=== PATIENT | female | born 1995 | race Two or more races ===

== ENCOUNTER 2022-01-12 08:23 | Emergency (ER) | payer MEDICAID, OTHER ==
[~2022-01-12] VITALS: Ht 162.6 cm; Wt 88.8 kg
[2022-01-12] MEDS ORDERED: SODIUM CHLORIDE 0.9% 1,000 ML IV ONE ×2 (09:45)
[2022-01-12] MEDS ORDERED: IOHEXOL 300 MG/ML 100ML BOTTLE IJ ONE (09:47)
[2022-01-12 09:52] LABS: Urine Bacteria NONE SEEN /hpf (None Seen); Urine Blood 3+ /uL (Negative); Urine Specific Gravity 1.015 (1.001-1.035); Urine WBC 268 /hpf (0 - 5); Urine WBC Clumps PRESENT /hpf (None Seen)
[2022-01-12 12:00] VITALS: BP 114/74
== END 2022-01-12 12:36 | disposition home or self-care (01) ==
LOC: ER 08:23
DX: S00.83XA Contusion of other part of head, initial encounter (principal); M25.512 Pain in left shoulder; M25.561 Pain in right knee; V49.9XXA Car occupant (driver) (passenger) injured in unspecified traffic accident, initial encounter; Y93.89 Activity, other specified; Y92.410 Unspecified street and highway as the place of occurrence of the external cause; Y99.8 Other external cause status
CPT/HCPCS: 70450; 70486; 71260; 72125; 73030; 73562; 81001; 81025; 96360; 96361; 99285; J7030; Q9967

== ENCOUNTER 2023-05-02 19:26 | Emergency (ER) | payer MEDICAID, OTHER ==
[~2023-05-02] VITALS: Ht 170.2 cm; Wt 93.6 kg
[2023-05-02 22:24] VITALS: BP 122/76; PULSE 91; RESP 16; O2SAT 97
[2023-05-02] MEDS ORDERED: IBUP-1456 PO (22:27)
[2023-05-02 22:29] VITALS: TEMP 98
== END 2023-05-02 23:09 | disposition home or self-care (01) ==
LOC: ER 19:26
DX: S16.1XXA Strain of muscle, fascia and tendon at neck level, initial encounter (principal); S00.83XA Contusion of other part of head, initial encounter; S09.90XA Unspecified injury of head, initial encounter; Z79.1 Long term (current) use of non-steroidal anti-inflammatories (NSAID); V47.6XXA Car passenger injured in collision with fixed or stationary object in traffic accident, initial encounter; Y93.89 Activity, other specified; Y92.410 Unspecified street and highway as the place of occurrence of the external cause; Y99.8 Other external cause status
CPT/HCPCS: 70450; 70486

== ENCOUNTER 2024-03-24 15:00 | Emergency (ER) | payer MEDICAID, OTHER ==
[~2024-03-24] VITALS: Ht 170.2 cm; Wt 97.4 kg
[~2024-03-24 15:00] MED LIST: IBUP-1456 PO
[2024-03-24 15:47] LABS: Urine Bacteria None Seen /hpf (None Seen)
[2024-03-24 15:58] LABS: Urine Blood 2+ /uL (Negative); Urine Clarity Clear (Clear); Urine Color Yellow (Yellow); Urine Mucus FEW (None Seen); Urine Protein, UAD Negative (Negative); Urine Specific Gravity 1.025 (1.001-1.035); Urine Squamous Epithelial Cell FEW /hpf (<5); Urine Urobilinogen Normal (Negative); Urine WBC 4 /HPF (0-5); Urine pH 5.5 (5.0-9.0)
[2024-03-24] MEDS: ONDANSETRON ODT 4 MG TAB PO ONE (16:13)
[2024-03-24] MEDS: ACETAMINOPHEN 325 MG TAB PO ONE (16:13)
--- NOTE | 2024-03-24 16:25 | ED.PDOC ---
History of Present Illness HPI Comments 28F presents to the ER w/ prior Hx of a , and a possibility of being 4 weeks which all may be associated to the c/c of ABN vaginal bleeding. Pt reports that she had 3 events in total of 1 being last night and 2 today. Pt notes that she has also been having mild craps associated w/ N/. Denies chills, fever, /V/D, SOB, CP or other associated symptom's, modifiers, or recent injuries or sick contact at this time. Patient was mildly tachycardic at arrival. Chief Complaint: Vaginal Bleed Time Seen by MD: 16:10 Primary Care Provider: none Reviewed Notes: Nurses Notes, Medications, Allergies Allergies: Coded Allergies: NO KNOWN ALLERGIES (Unverified , 08/05/18) Home Meds Active Scripts Ibuprofen (Ibuprofen) 800 Mg Tab, 1 TAB PO TID PRN, #30 TAB 0 Refills Prov:LINDA HENNING 05/02/23 Information Source: Patient, Pharmacy Mode of Arrival: Ambulatory Severity: Moderate Timing: Hours Duration: Since onset, Hours Prehospital treatment: None Past Medical History PAST MEDICAL HISTORY: Denies Past Medical History (Other): Surgical History: Denies all surgeries 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 Family History Family History: Unknown Social History Smoker: Non-Smoker Alcohol: Denies ETOH Use Drugs: Denies Drug Use Lives In: Home Constitutional: denies: chills, diaphoresis, fatigue, fever, malaise, sweats, weakness, others EENTM: denies: blurred vision, double vision, ear bleeding, ear discharge, ear drainage, ear pain, ear ringing, eye pain, eye redness, hearing loss, mouth pain, mouth swelling, nasal discharge, nose bleeding, nose congestion, nose pain, photophobia, tearing, throat pain, throat swelling, voice changes, others Respiratory: denies: cough, hemoptysis, orthopnea, SOB at rest, shortness of breath, SOB with excertion, stridor, wheezing, others Cardiovascular: denies: chest pain, dizzy spells, diaphoresis, Dyspnea on exertion, edema, irregular heart beat, left arm pain, lightheadedness, palpitations, PND, syncope, others Gastrointestinal: reports: abdominal pain, nausea; denies: abdomen distended, blood streaked bowels, constipated, diarrhea, dysphagia, difficulty swallowing, hematemesis, melena, poor appetite, poor fluid intake, rectal bleeding, rectal p ain, vomiting, others Genitourinary: reports: abnormal vagina bleeding; denies: burning, dyspareunia, dysuria, flank pain, frequency, hematuria, incontinence, pain, , vagina discharge, urgency, others Neurological: denies: dizziness, fainting, headache, left sided numbness, left sided weakness, numbness, paresthesia, pre-existing deficit, right sided numbness, right sided weakness, seizure, speech problems, tingling, tremors, weakness, others Musculoskeletal: denies: back pain, gout, joint pain, joint swelling, muscle pain, muscle stiffness, neck pain, others Integumetry: denies: bruises, change in color, change in hair/nails, dryness, laceration, lesions, lumps, rash, wounds, others Allergic/Immunocompromised: denies: Difficulty Healing, Frequent Infections, Hives, Itching, others Hematologic/Lymphatic: denies: anemia, blood clots, easy bleeding, easy bruising, swollen glands, others Endocrine: denies: excessive hunger, excessive sweating, excessive thirst, excessive urination, flushing, intolerance to cold, intolerance to heat, unexplained weight gain, unexplained weight loss, others Psychiatric: denies: anxiety, bipolar disorder, depression, hopeless, panic disorder, schizophrenia, sleepless, suicidal, others All Other Systems: Reviewed and Negative Physical Exam General Appearance: Mild Distress (Patient was in very mild abdominal discomfort at time of evaluation.), Obese HEENT: Normal ENT Inspection, Pharynx Normal, TMs Normal Neck: Full Range of Motion, Non-Tender, Normal, Normal Inspection Respiratory: Chest Non-Tender, Lungs Clear, No Accessory Muscle Use, No Respiratory Distress, Normal Breath Sounds Cardiovascular: No Edema, No JVD, No Murmur, No Gallop, Normal Peripheral Pulses, Regular Rate/Rhythm Breast Exam: Deferred Gastrointestinal: No Pulsatile Mass, Normal Bowel Sounds, Soft, Other (Diffuse bilateral lower abdominal/pelvic tenderness to palpation. No pulsatile masses. Unable to appreciate any signs of .) Genitalia: Deferred Pelvic: Deferred Rectal: Deferred Extremities: No calf tenderness, Normal capillary refill, Normal inspection, Normal range of motion, Non-tender, No pedal edema Musculoskeletal : Apperance: Normal Neurologic: Alert, No Motor Deficits, Normal Affect, Normal Mood, No Sensory Deficits Cerebellar Function: Normal Reflexes: Normal Skin: Dry, Normal Color, Warm Lymphatic: No Adenopathy Was a procedure done? Was a procedure done?: No Differential Dx Considerations may include: Threatened , placenta previa, subchorionic hemorrhage, vaginal bleeding in 1st trimester X-Ray, Labs, Meds, VS Vital Signs Date Time Temp Pulse Resp B/P (MAP) Pulse Ox O2 Delivery O2 Flow Rate FiO2 03/24/24 17:23 98.4 03/24/24 16:13 98.5 03/24/24 15:14 98.4 116 17 121/84 (96) 97 Lab Test 03/24/24 16:04 03/24/24 15:45 Range/Units Beta HCG, Quantitative 1063.5 H 1.5-4.2 mIU/mL Urine Color Yellow Yellow Urine Clarity Clear Clear Urine pH 5.5 5.0-9.0 Urine Specific [place] 1.025 1.001-1.035 Urine Protein Negative Negative Urine Ketones Negative Negative Urine Blood 2+ H Negative /uL Urine Nitrite Negative Negative Urine Bilirubin Negative Negative Urine Urobilinogen Normal Negative mg/dL Urine Leukocyte Esterase Trace Negative /uL Urine RBC 2 0 - 4 /hpf Urine Microscopic WBC 4 0-5 /HPF Urine Squamous Epithelial Cells Few <5 /hpf Urine Bacteria None seen None Seen /hpf Urine Mucus Few None Seen Urine Glucose Normal Normal mg/dL Current Medications Medications (Trade) Dose Ordered Sig/Lucia Route Start Time Stop Time Status Last Admin Acetaminophen (Tylenol Tablet) 1,000 mg ONCE ONCE PO 03/24/24 16:00 03/24/24 16:01 DC 03/24/24 16:13 Ondansetron HCl (Zofran Po) 4 mg ONCE ONCE PO 03/24/24 16:00 03/24/24 16:01 DC 03/24/24 16:13 X-Ray, Labs, Meds, VS Comment All studies performed the ED were evaluated by me personally. Urinalysis is unremarkable for any UTI. Patient had a beta-hCG of 1063.5. Advised patient to follow up with three days with a spur primary care provider, mirror maker or return to this facility for beta-hCG repeat. Time of 1ST Reevaluation: 17:27 Reevaluation 1ST: Improved Consultation: PCP, information technology analyst Patient Education/Counseling: Diagnosis, Treatment, Prognosis Family Education/Counseling: Diagnosis, Treatment, No Family Present Departure 1 Departure Time of Disposition: 17:28 Impression: Primary Impression: Vaginal bleeding before 22 weeks gestation Disposition: HOME / SELF CARE / HOMELESS Condition: Stable Additional Instructions: Advised patient return to ED or follow up with primary care provider or mirror maker for beta-hCG repeat in three days. Beta-hCG value today was 1063.5. Advised Tylenol as needed for pain and Zofran as needed for nausea. e-Prescriptions Ondansetron Odt 4MG Tab (ZOFRAN PO) 4 Mg Tb 4 MG PO Q6HP PRN, #20 TAB ODT TAB-DISSOLVE IN MOUTH, THEN SWALLOW Prov: RAMÓN FRANK PAC 03/24/24 Discharged With: Self, Friend Critical Care Note Critical Care Time?: No Stability Stability form required: No Heart Score Heart Score: Heart Score Response (Comments) Value History N/A 0 EKG N/A 0 Age N/A 0 Risk Factors N/A 0 Troponin N/A 0 Total 0 I personally scribed for RAMÓN FRANK PAC ([email or web address]) on 03/24/24 at 16:25. Electronically submitted by Everett Rodriguez ([email or web address]). RAMÓN FRANK PAC Mar 24, 2024 16:25
[2024-03-24] MEDS ORDERED: ZOFR4T PO (17:29)
[2024-03-24 17:36] VITALS: BP 113/78; PULSE 86; RESP 20; TEMP 98.4; O2SAT 98
== END 2024-03-24 17:44 | disposition home or self-care (01) ==
LOC: ER 15:00
DX: O20.8 Other hemorrhage in early pregnancy (principal); R10.2 Pelvic and perineal pain; Z3A.01 Less than 8 weeks gestation of pregnancy
CPT/HCPCS: 36415; 81001; 84702; 99283; Q0162

== ENCOUNTER 2024-03-26 17:33 | Emergency (ER) | payer MEDICAID ==
[~2024-03-26] VITALS: Ht 170.2 cm; Wt 97.3 kg
[2024-03-26 18:54] LABS: Basophils # (auto) 0.1 10 ^3/uL (0-0.2); Basophils % (auto) 0.6 % (0.0-2.0); Eosinophils # (auto) 0 10 ^3/uL (0-0.8); Eosinophils % (auto) 0.4 % (0.0-7.0); Hematocrit 39.7 % (36.0-46.0); Hemoglobin 13.5 g/dL (12.2-16.2); Lymphocytes # (auto) 2.6 10 ^3/uL (0.4-5.4); Lymphocytes % (auto) 25.8 % (10.0-50.0); Mean Corpuscular Hgb Conc. 34.1 g/dL (32.0-36.0); Mean Corpuscular Volume 82.3 fL (80.0-100.0); Monocytes # (auto) 0.5 10 ^3/uL (0-1.3); Monocytes % (auto) 5.3 % (0.0-12.0); Neutrophils # (auto) 6.7 10 ^3/uL (1.6-8.6); Neutrophils % (auto) 67.9 % (37.0-80.0); Platelet Count (auto) 313 10^3/uL (140-450); Red Blood Cells 4.82 10^6/uL (4.0-5.20); Red Cell Distribution Width 14.4 % (11.8-14.3); White Blood Cell 9.9 10^3/uL (4.4-10.8)
[2024-03-26 19:09] LABS: Alkaline Phosphatase 85 U/L (46-116); Anion Gap 9 (5-15); BUN/Creatinine Ratio 9.2 (10.0-20.0); Calcium 9.8 mg/dL (8.7-10.4); Carbon Dioxide 23 mmol/L (20-31); Chloride 106 mmol/L (98-107); Glucose 101 mg/dL (74-106); Potassium 3.9 mmol/L (3.5-5.1); Sodium 138 mmol/L (136-145)
[2024-03-26 19:14] LABS: Alanine Aminotransferase 73 U/L (7-40); Aspartate Aminotransferase 46 U/L (13-40); Bilirubin, Total 0.2 mg/dL (0.2-1.0); Blood Urea Nitrogen 8 mg/dL (9-23); Total Protein 8.4 g/dL (5.7-8.2)
--- NOTE | 2024-03-26 19:14 | DVH ---
OB ULTRASOUND <14 WEEKS: HISTORY: vag bleed TECHNIQUE: Multiple real-time grayscale sonographic images of the pelvis with duplex Doppler color f low, spectral and M-mode analysis. TRANSDUCERS: Transabdominal and transvaginal COMPARISON: None FINDINGS: The uterus measures 8.3 x 6.0 x 5.1 cm The cervix is not visualized Right ovary measures 1.9 x 2.4 x 2.0 cm with normal Doppler color flow. Left ovary measures 1.9 x 1.7 x 2.5 cm with normal Doppler color flow. Bilateral ovarian cysts measuring up to 1.5 cm on the right and 1.3 cm on the left. Gestational sac type structure is visualized in the uterine fundus measuring 0.3 cm. Yolk sac or fet al pole are not visualized at this time. heart rate is not detected at this time. IMPRESSION: Gestational sac within the uterus with no identifiable pole or yolk sac. This may be represent ative of a blighted versus early . Correlation with follow-up beta hCG levels. Fol low-up ultrasound could be performed if clinically indicated.
[2024-03-26 19:15] LABS: Albumin 5.3 g/dL (3.2-4.8)
--- NOTE | 2024-03-26 19:50 | ED.PDOC ---
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 Pt has the following course of events: - pt is currently 5 weeks per OB with recent test, with 3 live births- - pt has been having vaginal bleeding for the past 5 days, and states she has gone through 1 pad daily over the course of her bleeding - pt has OB at , 1 days prior and had OB Ultrasound done and states she was told she has a gestational sac but states no heart tones were found yet and told to come back today for outpatient labs - pt came in today, as she continued to have bleeding and was told she has a threatened miscarriage per OB PMH: denies PSH: denies medications: denies social history: denies tobacco use, denies ETOH use, denies drug use allergies: denies Yosvany. HPI: Poor Historian. 28-year-old female five weeks gestation here for five day history of vaginal bleeding daily one pad per day. Patient came to the ED on Monday and had a workup. She also went to see her OB Gyne doctor yesterday who performed an ultrasound and told her there was no heart beat appreciated might be too early or possible threatened miscarriage. Patient continues to have the same amount of bleeding. She decided to come to the ER again today. REVIEW OF SYSTEMS: CONSTITUTIONAL: Denies acute: fever, diaphoresis, chills, generalized weakness. HEAD: Denies acute: headache, photophobia Eyes: Denies acute: Double vision, vision loss, eye pain, eye discharge. EARS: Denies acute: tinnitus, hearing loss, ear discharge, ear pain, THROAT: Denies acute: sore throat, swelling, difficulty swallowing , pain with swallowing, change in voice. NECK: Denies acute: neck pain, neck swelling, stiff neck. HEART: Denies acute : chest pain, palpitations, LUNGS: Denies acute: SOB, wheezing, cough, hemoptysis ABDOMEN: Denies acute: abdominal pain, Nausea, Vomiting, diarrhea, melena , hematemesis, hematochezia SKIN: Denies acute: rash, redness, lesions, itchiness. EXTREMITIES: Denies acute: calf pain, numbness, tingling, weakness, denies pain in extremity. Denies acute: Low back pain. Neuro: Denies acute: focal neurological deficit, motor or sensory focal neurological deficit, tremors, seizure like activity, confusion, dizziness, change in mental status, loss of bowel or bladder function, cauda equina like symptoms. : Denies acute: dysuria, hematuria, flank pain, increase in urinary frequency. PSYCH: Denies acute: hallucination, suicidal ideation, homicidal ideation. FEMALE: Denies acute: foul odor, unusual discharge. PHYSICAL EXAM: General: no acute distress, awake and alert. Head: normocephalic, atraumatic. Neck: supple, trachea is midline, no swelling. Throat: Normal phonation. Eyes:, no erythema, no purulent discharge, no proptosis, no icterus. Heart: regular rate, regular rhythm, no significant murmur appreciated. Lungs: no apparent respiratory distress, Able to speak in full sentences. No wheezing, no rhonchi, no crackles. No stridors Clear to auscultation bilaterally. Abdomen: non tender to palpation, non distended, soft, no guarding, no rebound, + bowel sounds. Neuro: Awake, Alert, oriented to name, self, situation, follows commands GCS=15. Speech is normal. Skin: no petechia, no purpura, no cyanosis, non-pale, not jaundice. Lower extremities: --no - Pitting edema no deformity, no focal swelling, no calf TTP. Makes eye contact. moves all four extremities. Ambulating in the ED independently. Chief Complaint: Vaginal Bleed Time Seen by MD: 19:47 Reviewed Notes: Nurses Notes, Allergies Allergies: Coded Allergies: NO KNOWN ALLERGIES (Unverified , 08/05/18) Home Meds Active Scripts Ondansetron Odt 4MG Tab (ZOFRAN PO) 4 Mg Tb, 4 MG PO Q6HP PRN, #20 TAB ODT TAB-DISSOLVE IN MOUTH, THEN SWALLOW Prov:RAMÓN FRANK PAC 03/24/24 Ibuprofen (Ibuprofen) 800 Mg Tab, 1 TAB PO TID PRN, #30 TAB 0 Refills Prov:LINDA HENNING 05/02/23 Information Source: Patient Mode of Arrival: Ambulatory Brought in by: self Past Medical History PAST MEDICAL HISTORY: Denies Surgical History: Denies all surgeries CONTENT 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 Was a procedure done?: No Differential Diagnosis (CONTENT STRATEGIST) Vaginal Bleeding: - Complete, - Incomplete, - Inevitable, - Missed, - Threatened, Abruptio Placentae, Blood Loss Anemia, Dysmenorrhea, Ectopic , Hormonal, Menorrhagia, Menometrorrhagia, Menstrual Bleeding, Placenta Previa, Trauma, Other (Differential diagnosis includes but not limited to DU B, menorrhea, metromenorrhagia, neoplasm, coagulopathy,, trauma, miscarriage, placenta previa, placental abruption, ) X-Ray, Labs, Meds, VS Vital Signs Date Time Temp Pulse Resp B/P (MAP) Pulse Ox O2 Delivery O2 Flow Rate FiO2 03/26/24 21:44 98.5 99 20 122/78 (93) 97 98.5 03/26/24 17:57 98.9 101 18 118/87 (97) 97 Lab Test 03/26/24 18:32 Range/Units White Blood Count 9.9 # 4.4-10.8 10^3/uL Red Blood Count 4.82 4.0-5.20 10^6/uL Hemoglobin 13.5 12.2-16.2 g/dL Hematocrit 39.7 36.0-46.0 % Mean Corpuscular Volume 82.3 80.0-100.0 fL Mean Corpuscular Hemoglobin 28.0 28.0-32.0 pg Mean Corpuscular Hemoglobin Concent 34.1 32.0-36.0 g/dL Red Cell Distribution Width 14.4 H 11.8-14.3 % Platelet Count 313 140-450 10^3/uL Mean Platelet Volume 8.4 6.9-10.8 fL Neutrophils (%) (Auto) 67.9 37.0-80.0 % Lymphocytes (%) (Auto) 25.8 10.0-50.0 % Monocytes (%) (Auto) 5.3 0.0-12.0 % Eosinophils (%) (Auto) 0.4 0.0-7.0 % Basophils (%) (Auto) 0.6 0.0-2.0 % Neutrophils # (Auto) 6.7 1.6-8.6 10 ^3/uL Lymphocytes # (Auto) 2.6 0.4-5.4 10 ^3/uL Monocytes # (Auto) 0.5 0-1.3 10 ^3/uL Eosinophils # (Auto) 0 0-0.8 10 ^3/uL Basophils # (Auto) 0.1 0-0.2 10 ^3/uL Nucleated Red Blood Cells 0.0 % Sodium Level 138 136-145 mmol/L Potassium Level 3.9 3.5-5.1 mmol/L Chloride Level 106 98-107 mmol/L Carbon Dioxide Level 23 20-31 mmol/L Anion Gap 9 5-15 Blood Urea Nitrogen 8 L 9-23 mg/dL Creatinine 0.87 0.550-1.02 mg/dL Glomerular Filtration Rate Calc 94 >90 mL/min BUN/Creatinine Ratio 9.2 L 10.0-20.0 Serum Glucose 101 74-106 mg/dL Lactic Acid Level 1.1 0.4-2.0 mmol/L Calcium Level 9.8 8.7-10.4 mg/dL Total Bilirubin 0.2 0.2-1.0 mg/dL Aspartate Amino Transferase (AST) 46 H 13-40 U/L Alanine Aminotransferase (ALT) 73 H 7-40 U/L Alkaline Phosphatase 85 46-116 U/L Total Protein 8.4 H 5.7-8.2 g/dL Albumin 5.3 H 3.2-4.8 g/dL Beta HCG, Quantitative 1468.6 H 1.5-4.2 mIU/mL [place] [address] Ph: [phone] DIAGNOSTIC IMAGING Diagnostic Imaging Report : [id number] Signed PATIENT: GENET ALEX ACCT: [id number] UNIT: [id number] : 1995 LOC: ER ROOM / BED: / AGE / SEX: 28 / F ADM STATUS: REG ER SERVICE [id number] ORDERING PHYSICIAN: ALECIA SALMON DO PROCEDURE(s): OBTVG - OB TRANS VAGINAL US REASON: VAG BLEED ORDER NUMBER(s): [id number], ACCESSION NUMBER(s): [id number] OB ULTRASOUND <14 WEEKS: HISTORY: vag bleed TECHNIQUE: Multiple real-time grayscale sonographic images of the pelvis with duplex Doppler color flow, spectral and M-mode analysis. TRANSDUCERS: Transabdominal and transvaginal COMPARISON: None FINDINGS: The uterus measures 8.3 x 6.0 x 5.1 cm The cervix is not visualized Right ovary measures 1.9 x 2.4 x 2.0 cm with normal Doppler color flow. Left ovary measures 1.9 x 1.7 x 2.5 cm with normal Doppler color flow. Bilateral ovarian cysts measuring up to 1.5 cm on the right and 1.3 cm on the left. Gestational sac type structure is visualized in the uterine fundus measuring 0.3 cm. Yolk sac or pole are not visualized at this time. heart rate is not detected at this time. IMPRESSION: Gestational sac within the uterus with no identifiable pole or yolk sac. This may be food products sales representative of a blighted versus early . Correlation with follow-up beta hCG levels. Follow-up ultrasound could be performed if clinically indicated. ATED BY: NATHAN CHURCHILL MD DICTATED DATE/TIME: 03/26/241909 SIGNED BY: NATHAN CHURCHILL MD SIGNED DATE/TIME: 03/26/241909 CC: [place] [address] Ph: [phone] DIAGNOSTIC IMAGING Diagnostic Imaging Report : [id number] Signed PATIENT: GENET ALEX ACCT: [id number] UNIT: [id number] : 1995 LOC: ER ROOM / BED: / AGE / SEX: 28 / F ADM STATUS: REG ER SERVICE [id number] ORDERING PHYSICIAN: ALECIA SALMON DO PROCEDURE(s): OB4US - OB ULTRASOUND COMP LESS 14WKS REASON: vag bleed ORDER NUMBER(s): [id number], ACCESSION NUMBER(s): [id number] OB ULTRASOUND <14 WEEKS: HISTORY: vag bleed TECHNIQUE: Multiple real-time grayscale sonographic images of the pelvis with duplex Doppler color flow, spectral and M-mode analysis. TRANSDUCERS: Transabdominal and transvaginal COMPARISON: None FINDINGS: The uterus measures 8.3 x 6.0 x 5.1 cm The cervix is not visualized Right ovary measures 1.9 x 2.4 x 2.0 cm with normal Doppler color flow. Left ovary measures 1.9 x 1.7 x 2.5 cm with normal Doppler color flow. Bilateral ovarian cysts measuring up to 1.5 cm on the right and 1.3 cm on the left. Gestational sac type structure is visualized in the uterine fundus measuring 0.3 cm. Yolk sac or pole are not visualized at this time. heart rate is not detected at this time. IMPRESSION: Gestational sac within the uterus with no identifiable pole or yolk sac. This may be food products sales representative of a blighted versus early . Correlation with follow-up beta hCG levels. Follow-up ultrasound could be performed if clinically indicated. ATED BY: NATHAN CHURCHILL MD DICTATED DATE/TIME: 03/26/241909 SIGNED BY: NATHAN CHURCHILL MD SIGNED DATE/TIME: 03/26/241909 CC: Time of 1ST Reevaluation: 00:00 Reevaluation 1ST: Unchanged Patient Education/Counseling: Diagnosis, Treatment Family Education/Counseling: Other Comments MDM: Patient presented with the above HPI.-- vaginal bleed in ---workup was initiated. patient was found with the above mentioned diagnosis. the following medications/ tests were ordered: OB transvaginal US, OB ultrasound comp, EKG, lactic acid, UA, CMP, CBC, beta HCG Patient ED course and VS have been stabilized. Patient has been reassessed in the ED and remained in a stable condition. Pertinent incidental findings were discussed with the patient and/or family. Patient/family voices understanding and is agreeable with plan. Patient has been observed in the ED adequate length of time to insure improvement/stability. Escalation of care considered: Consideration of escalation to observation or admission Patient was DISCHARGED home in a stable condition. All the reports of any imaging studies that were ordered by myself were reviewed by myself. Departure 1 Departure Time of Disposition: 21:17 Impression: Primary Impression: Threatened Additional Impression: Vaginal bleeding during Disposition: HOME / SELF CARE / HOMELESS Condition: Stable Additional Instructions: Additional discharge instructions: You MUST follow-up with your primary care/family doctor in 1 to 2 days. If you are unable to see your primary care/family doctor, please return to our emergency room for re-assessment and re-evaluation in 1 to 2 days. Return to the emergency room here in our facility or to the nearest ER [facility] if your symptoms change or worsen. CONSULTATIONS: you MUST Follow-up for consultation as soon as possible with: Gynpetr doctor in 1-2 days. Please call for appointment. You MUST call the consultants office yourself to make an appointment. You may need to arrange that through your insurance and/or your primary/family doctor. If you are unable to see the alliances consultant in 1 to 2 days, you must return to our emergency room (or any other ER of your choice) for re-assessment and re- evaluation. Adequate fluid hydration. Absolute pelvic rest. Repeat beta-hCG in 48-72 hours. Beta-hCG levels: March 26 146March 26 133March 24 106 Your beta-hCG levels seems to be rising but you must continue monitoring the le ramona as instructed. Repeat pelvic ultrasound in 4-5 days. Below is a copy of your radiological report for follow up: this is a copy of your radiology reports performed in the ED: [place] [address] Ph: [phone] DIAGNOSTIC IMAGING Diagnostic Imaging Report : [id number] Signed PATIENT: GENET ALEX ACCT: [id number] UNIT: [id number] : 1995 LOC: ER ROOM / BED: / AGE / SEX: 28 / F ADM STATUS: REG ER SERVICE [id number] ORDERING PHYSICIAN: ALECIA SALMON DO PROCEDURE(s): OBTVG - OB TRANS VAGINAL US REASON: VAG BLEED ORDER NUMBER(s): [id number], ACCESSION NUMBER(s): [id number] OB ULTRASOUND <14 WEEKS: HISTORY: vag bleed TECHNIQUE: Multiple real-time grayscale sonographic images of the pelvis with duplex Doppler color flow, spectral and M-mode analysis. TRANSDUCERS: Transabdominal and transvaginal COMPARISON: None FINDINGS: The uterus measures 8.3 x 6.0 x 5.1 cm The cervix is not visualized Right ovary measures 1.9 x 2.4 x 2.0 cm with normal Doppler color flow. Left ovary measures 1.9 x 1.7 x 2.5 cm with normal Doppler color flow. Bilateral ovarian cysts measuring up to 1.5 cm on the right and 1.3 cm on the left. Gestational sac type structure is visualized in the uterine fundus measuring 0.3 cm. Yolk sac or pole are not visualized at this time. heart rate is not detected at this time. IMPRESSION: Gestational sac within the uterus with no identifiable pole or yolk sac. This may be food products sales representative of a blighted versus early . Correlation with follow-up beta hCG levels. Follow-up ultrasound could be performed if clinically indicated. ATED BY: NATHAN CHURCHILL MD DICTATED DATE/TIME: 03/26/241909 SIGNED BY: NATHAN CHURCHILL MD SIGNED DATE/TIME: 03/26/241909 CC: [place] [address] Ph: [phone] DIAGNOSTIC IMAGING Diagnostic Imaging Report : [id number] Signed PATIENT: GENET ALEX ACCT: [id number] UNIT: [id number] : 1995 LOC: ER ROOM / BED: / AGE / SEX: 28 / F ADM STATUS: REG ER SERVICE 3136 ORDERING PHYSICIAN: ALECIA SALMON DO PROCEDURE(s): OB4US - OB ULTRASOUND COMP LESS 14WKS REASON: vag bleed ORDER NUMBER(s): [id number], ACCESSION NUMBER(s): [id number] OB ULTRASOUND <14 WEEKS: HISTORY: vag bleed TECHNIQUE: Multiple real-time grayscale sonographic images of the pelvis with duplex Doppler color flow, spectral and M-mode analysis. TRANSDUCERS: Transabdominal and transvaginal COMPARISON: None FINDINGS: The uterus measures 8.3 x 6.0 x 5.1 cm The cervix is not visualized Right ovary measures 1.9 x 2.4 x 2.0 cm with normal Doppler color flow. Left ovary measures 1.9 x 1.7 x 2.5 cm with normal Doppler color flow. Bilateral ovarian cysts measuring up to 1.5 cm on the right and 1.3 cm on the left. Gestational sac type structure is visualized in the uterine fundus measuring 0.3 cm. Yolk sac or pole are not visualized at this time. heart rate is not detected at this time. IMPRESSION: Gestational sac within the uterus with no identifiable pole or yolk sac. This may be food products sales representative of a blighted versus early . Correlation with follow-up beta hCG levels. Follow-up ultrasound could be performed if clinically indicated. ATED BY: NATHAN CHURCHILL MD DICTATED DATE/TIME: 03/26/241909 SIGNED BY: NATHAN CHURCHILL MD SIGNED DATE/TIME: 03/26/241909 CC: Discharged With: Self Critical Care Note Critical Care Time?: No I personally scribed for ALECIA SALMON DO ([email or web address]) on 03/26/24 at 19:50. Elect ronically submitted by Krupa Dominguez ([email or web address]). ALECIA SALMON DO Mar 26, 2024 19:50
[2024-03-26 21:44] VITALS: BP 122/78; PULSE 99; RESP 20; TEMP 98.5; O2SAT 97
== END 2024-03-26 21:42 | disposition home or self-care (01) ==
LOC: ER 17:43
DX: O20.0 Threatened abortion (principal); N93.9 Abnormal uterine and vaginal bleeding, unspecified; Z3A.01 Less than 8 weeks gestation of pregnancy
CPT/HCPCS: 36415; 76801; 76817; 80053; 83605; 84702; 85025; 86850; 86900; 86901

== ENCOUNTER → 2024-03-26 | Outpatient (CLI) | payer MEDICAID ==
[~2024-03-26] MED LIST changes: +ZOFR4T PO
[2024-03-26 10:05] LABS: Basophils # (auto) 0 10 ^3/uL (0-0.2); Basophils % (auto) 0.4 % (0.0-2.0); Eosinophils # (auto) 0.1 10 ^3/uL (0-0.8); Eosinophils % (auto) 1.1 % (0.0-7.0); Hematocrit 41.6 % (36.0-46.0); Hemoglobin 13.6 g/dL (12.2-16.2); Lymphocytes # (auto) 2.5 10 ^3/uL (0.4-5.4); Lymphocytes % (auto) 34.2 % (10.0-50.0); Mean Corpuscular Hemoglobin 27.2 pg (28.0-32.0); Mean Corpuscular Hgb Conc. 32.7 g/dL (32.0-36.0); Mean Corpuscular Volume 83.1 fL (80.0-100.0); Monocytes # (auto) 0.4 10 ^3/uL (0-1.3); Monocytes % (auto) 6.2 % (0.0-12.0); Neutrophils # (auto) 4.2 10 ^3/uL (1.6-8.6); Neutrophils % (auto) 58.1 % (37.0-80.0); Platelet Count (auto) 310 10^3/uL (140-450); Red Blood Cells 5.01 10^6/uL (4.0-5.20); Red Cell Distribution Width 14.5 % (11.8-14.3); White Blood Cell 7.2 10^3/uL (4.4-10.8)
[2024-03-26 10:14] LABS: Amphetamine Screen, Urine Neg (NEGATIVE)
[2024-03-26 10:15] LABS: Alkaline Phosphatase 78 U/L (46-116); Anion Gap 9 (5-15); Aspartate Aminotransferase 35 U/L (13-40); Blood Urea Nitrogen 10 mg/dL (9-23); Carbon Dioxide 24 mmol/L (20-31); Chloride 106 mmol/L (98-107); Glucose 92 mg/dL (74-106); Potassium 3.9 mmol/L (3.5-5.1); Sodium 139 mmol/L (136-145); Triglycerides 111 mg/dL (< 150)
[2024-03-26 10:16] LABS: Bilirubin, Total 0.3 mg/dL (0.2-1.0); Cholesterol 163 mg/dL (< 200); HDL Cholesterol 54 mg/dL (40-59); Total Protein 8.1 g/dL (5.7-8.2)
[2024-03-26 10:19] LABS: Thyroid Stimulating Hormone 2.11 uIU/mL (0.55-4.78)
[2024-03-26 10:26] LABS: Alanine Aminotransferase 66 U/L (7-40); Albumin 5.2 g/dL (3.2-4.8); Barbiturate Scree,Urine Neg (NEGATIVE); Benzodiazephine Screen, Urine Neg (NEGATIVE); Cannabinoid Screen, Urine Neg (NEGATIVE); Cocaine Screen, Urine Neg (NEGATIVE); LDL Cholesterol 100 mg/dL (< 100); Opiate Scree,Urine Neg (NEGATIVE); Phencyclidine Screen, Urine Neg (NEGATIVE)
[2024-03-26 10:28] LABS: Beta HCG, Quantitative 1334.1 mIU/mL (1.5-4.2)
[2024-03-27 07:06] LABS: RPR Non Reactive (Non Reactive)
[2024-03-27 12:06] LABS: Varicella Zoster IgG Antibody Reactive (Non Reactive)
[2024-03-28 01:06] LABS: Chlamydia Trachomatis, NAA Negative (Negative); Neisseria gonorrhoeae, NAA Negative (Negative)
[2024-03-29 03:06] LABS: QuantiFERON-TB Gold Plus Negative (Negative)
== END | disposition home or self-care (01) ==
LOC: LAB 08:58
PROVIDERS: ATTEND Obstetrics & Gynecology
DX: Z36.0 Encounter for antenatal screening for chromosomal anomalies (principal); Z34.90 Encounter for supervision of normal pregnancy, unspecified, unspecified trimester; Z31.430 Encounter of female for testing for genetic disease carrier status for procreative management; N39.0 Urinary tract infection, site not specified
CPT/HCPCS: 36415; 80053; 80061; 80307; 83036; 84439; 84443; 84702; 85025; 86592; 86703; 86762; 86787; 86850; 86900; 86901; 87086; 87340; 87902

== ENCOUNTER 2024-10-09 10:00 | Outpatient (CLI) | payer MEDICAID ==
[2024-10-09 10:41] LABS: Hematocrit 40.7 % (36.0-46.0); Hemoglobin 13.7 g/dL (12.2-16.2); Mean Corpuscular Hemoglobin 28.2 pg (28.0-32.0); Mean Corpuscular Volume 83.5 fL (80.0-100.0); Nucleated Red Blood Cells % 0.1 %
[2024-10-11 02:07] LABS: Chlamydia Trachomatis, NAA Negative (Negative); Neisseria gonorrhoeae, NAA Negative (Negative)
[2024-10-13 18:06] LABS: HBV as IU/mL HBV DNA not detected IU/mL (.)
== END 2024-10-09 17:00 | disposition home or self-care (01) ==
LOC: LAB 10:00
DX: E66.01 Morbid (severe) obesity due to excess calories (principal); Z01.419 Encounter for gynecological examination (general) (routine) without abnormal findings; Z11.2 Encounter for screening for other bacterial diseases; Z11.3 Encounter for screening for infections with a predominantly sexual mode of transmission; Z11.4 Encounter for screening for human immunodeficiency virus [HIV]
CPT/HCPCS: 36415; 85025; 86695; 86696; 86703; 86780; 87517; 87902

== ENCOUNTER 2025-02-10 08:20 | Outpatient (CLI) | payer MEDICAID ==
[2025-02-10 08:53] LABS: Hematocrit 42.0 % (36.0-46.0); Hemoglobin 14.0 g/dL (12.2-16.2); Mean Corpuscular Hemoglobin 28.1 pg (28.0-32.0); Mean Corpuscular Volume 84.2 fL (80.0-100.0); Nucleated Red Blood Cells % 0.0 %
[2025-02-10 09:37] LABS: Alanine Aminotransferase 33 U/L (7-40); Alkaline Phosphatase 105 U/L (46-116); Anion Gap 11 (5-15); BUN/Creatinine Ratio 7.3 (10.0-20.0); Calcium 9.9 mg/dL (8.7-10.4); Carbon Dioxide 26 mmol/L (20-31); Chloride 105 mmol/L (98-107); Glucose 88 mg/dL (74-106); Potassium 4.6 mmol/L (3.5-5.1); Sodium 142 mmol/L (136-145)
[2025-02-10 09:38] LABS: Bilirubin, Total 0.4 mg/dL (0.2-1.0)
[2025-02-10 09:49] LABS: Albumin 4.9 g/dL (3.2-4.8); Blood Urea Nitrogen 6 mg/dL (9-23); Total Protein 8.2 g/dL (5.7-8.2)
== END 2025-02-10 17:00 | disposition home or self-care (01) ==
LOC: LAB 08:20
DX: Z51.81 Encounter for therapeutic drug level monitoring (principal); Z79.01 Long term (current) use of anticoagulants
CPT/HCPCS: 36415; 80053; 84439; 84443; 85025

== ENCOUNTER 2025-02-17 10:01 | Outpatient (CLI) | payer MEDICAID ==
[2025-02-17 10:58] LABS: Triglycerides 118 mg/dL (< 150)
[2025-02-17 11:00] LABS: Cholesterol 158 mg/dL (< 200); HDL Cholesterol 54 mg/dL (40-59)
== END 2025-02-17 17:00 | disposition home or self-care (01) ==
LOC: LAB 10:01
DX: R94.8 Abnormal results of function studies of other organs and systems (principal)
CPT/HCPCS: 36415; 80061; 83036